=== PATIENT | female | born 1995 | race African-American/Black ===

== ENCOUNTER 2020-08-25 11:57 | Emergency (ER) | payer BC, SELFPAY ==
[2020-08-25 12:17] VITALS: BP 120/94; PULSE 75; RESP 20; TEMP 36.7; O2SAT 100
--- NOTE | 2020-08-25 14:01 | ED.URI ---
HPI - URI/Sore Throat General Chief Complaint: Upper Respiratory Infection Stated Complaint: COVID +, CHEST CONGESTION Time Seen by Provider: 08/25/20 13:27 Source: patient Mode of arrival: ambulatory Limitations: no limitations History of Present Illness HPI Narrative: 25-year-old female Generally healthy Works at [employer] and had a positive Covid test there 5 days ago Here because of a tightness and burning in her chest She has a minimal cough which really just started yesterday, is not running a fever, and is not particularly short of breath Review of Systems Review of Systems: All systems reviewed & are unremarkable except as noted in HPI and below Constitutional: Constitutional: Reports no additional constitutional complaints, Reports fatigue, Denies fever(s), Denies headache(s) and Reports weakness Eyes: Eyes: Reports no additional eye complaints and Denies change in vision ENT: Denies headache(s) and Reports sore throat Cardiovascular: Cardiovascular: Reports chest pain and Denies dyspnea Respiratory: Respiratory: Reports cough, Denies dyspnea and Denies wheezing Gastrointestinal: Gastrointestinal: Denies abdominal pain, Denies diarrhea and Denies vomiting Genitourinary: Genitourinary: Denies urinary frequency and Denies dysuria Musculoskeletal: Musculoskeletal: Reports myalgias, Denies deformity, Denies arthralgias, Denies joint swelling and Denies numbness Integumentary/Breasts: Skin/Breast: Denies rash and Denies wounds Neurologic: Denies headache(s), Denies focal weakness and Denies numbness Psychiatric: Psychiatric: Reports no additional psychiatric complaints Endocrine: Endocrine: Reports no additional endocrine complaints Hematologic/Lymphatic: Hematologic/Lymphatic: Reports no additional hematologic/lymphatic complaints Allergic/Immunologic: Allergic/Immunologic: Reports no additional allergic/immunologic complaints [facility] Social History Social History Gender identity (if verbalized by the patient): Female Exam Const: General: cooperative, healthy appearing, no acute distress and alert Orientation/consciousness: patient oriented x3 (alert) HENMT: Head: normal to inspection, normocephalic and atraumatic Ears: external ears normal General nose exam: no epistaxis Eyes: Conjunctivae: conjunctivae normal EOM: EOMs intact bilaterally Neck: Neck: normal visual inspection, supple and no JVD Resp: Effort & Inspection: normal respiratory effort and not labored Auscultation: clear to auscultation bilaterally, no rales, no rhonchi, no wheezes and other (BS =) Cardio: Rate: regular rate Rhythm: regular rhythm Heart sounds: Murmur heart sound present Skin: General skin exam: normal color and no rashes or lesions noted Neuro: General: patient oriented x3 (alert) and moves all extremities Speech: normal speech Psych: Affect: normal affect Course Course Emergency Course: Discussed with patient that the likely course of a Covid illness may run 10 to 14 days, use of vitamin D and albuterol Vital Signs Vital signs: Vital Signs Temperature 36.7 C 08/25/20 12:17 Pulse Rate 75 08/25/20 12:17 Respiratory Rate 20 08/25/20 12:17 Blood Pressure 120/94 H 08/25/20 12:17 Pulse Oximetry 100 08/25/20 12:17 Temperature 36.7 C 08/25/20 12:17 Pulse Rate 75 08/25/20 12:17 Respiratory Rate 20 08/25/20 12:17 Blood Pressure 120/94 H 08/25/20 12:17 Pulse Oximetry 100 08/25/20 12:17 Discharge Plan Discharge Clinical Impression: COVID-19 virus infection Patient Disposition: Home, Self-Care Condition: Stable Additional Instructions: Your pulse oximetry is 100% today, which is great If you would like to purchase a pulse oximeter you can follow those at home and any numbers in the 90s are fine You can consider taking an [id number] vitamin D supplement if you wish Prescriptions: New albuterol sulfate 90 mcg/actuation HFA aerosol inhaler 2
[2020-08-25 14:31] VITALS: PULSE 98; RESP 18; O2SAT 100
== END 2020-08-25 14:31 | disposition home or self-care (01) ==
PROVIDERS: Emergency Provider Emergency Medicine
DX: U07.1 COVID-19 (principal)
CPT/HCPCS: 99283